=== PATIENT | female | born 1935 | race Caucasian/White ===

== ENCOUNTER → 2016-11-01 | Outpatient (CLI) | payer MEDICARE, OTHER ==
[~2016-11-01] MED LIST: ASPIR 8181 MG PO; ASPIRIN EC81 MG PO; BENICAR HCT 401 EAC1 PO; BENICAR5 MG PO; CITRACAL950 MG PO; COREG 3.1253.125 MG PO; DILAUDID 2MG(HYD2 MG PO; FLONASE 50 MCG/16 GM NOSE; HYDROCHLOROTHIA25 MG PO; K-TAB 10MEQ10 MEQ PO; NEOSPORIN15 GM TOP; NORVASC5 MG PO; PREVACID15 MG PO; PROTONIX20 MG PO; TYLENOL325 MG PO; VITAMIN D35000 UNI1 PO; ZANTAC (NON-FO150 MG PO
== END ==
LOC: LFPA 17:10
DX: R53.83 Other fatigue (principal); E55.9 Vitamin D deficiency, unspecified

== ENCOUNTER → 2016-12-19 | Day surgery (SDC) | payer MEDICARE, OTHER ==
[~2016-12-19] VITALS: Ht 175.3 cm; Wt 85.9 kg
== END | disposition disaster alternative care site (69) ==
LOC: GPOC 12-18 16:00 → GEND 08:29
PROC: 0DB68ZX Excision of Stomach, Via Natural or Artificial Opening Endoscopic, Diagnostic (ICD-10-PCS; principal; 2016-12-19)
DX: K29.50 Unspecified chronic gastritis without bleeding (principal); K44.9 Diaphragmatic hernia without obstruction or gangrene; K21.9 Gastro-esophageal reflux disease without esophagitis; I10 Essential (primary) hypertension; I73.9 Peripheral vascular disease, unspecified; Z98.41 Cataract extraction status, right eye; Z98.42 Cataract extraction status, left eye; Z98.890 Other specified postprocedural states; Z79.82 Long term (current) use of aspirin; Z79.899 Other long term (current) drug therapy
CPT/HCPCS: J2001; J7030